=== PATIENT | male | born 1955 | race American Indian/Alaskan Native ===

== ENCOUNTER 2018-02-15 16:23 | Inpatient (IN) | payer MEDICARE ==
[2018-02-15] MEDS ORDERED: TYLENOL ONE (16:33)
[2018-02-15] MEDS ORDERED: NACL 0.9% 500 ML 500 ML IV ONE (16:33)
[2018-02-15] MEDS ORDERED: TYLENOL PO STA (16:33)
[2018-02-15 17:01] LABS: Basophils # (Auto) 0.1 K/mm3 (0.0-0.1); Basophils % (Auto) 0.3 % (0.0-1.8); Hematocrit 39.9 % (35.5-45.6); Lymphocytes # (Auto) 0.8 K/mm3 (1.2-5.4); Lymphocytes % (Auto) 4.1 % (13.4-35.0); Mean Corpuscular HGB Conc 33 % (32-34); Mean Corpuscular Hemoglobin 28 pg (28-32); Mean Corpuscular Volume 86 fl (84-94); Monocytes # (Auto) 1.9 K/mm3 (0.0-0.8); Monocytes % (Auto) 9.5 % (0.0-7.3); Platelet Count 328 K/mm3 (140-440); Red Blood Count 4.64 M/mm3 (3.65-5.03); Red Cell Distribution Width 14.8 % (13.2-15.2)
[2018-02-15 17:06] LABS: INR 1.06 (0.87-1.13)
[2018-02-15] MEDS ORDERED: COLCRYS PO ONE (17:08)
[2018-02-15] MEDS ORDERED: DILAUDID IV ONE (17:08)
[2018-02-15] MEDS ORDERED: ZOFRAN IV ONE (17:08)
[2018-02-15] MEDS ORDERED: INDOCIN PO ONE (17:08)
[2018-02-15] MEDS ORDERED: NACL 0.9% 1000 ML IV ONE (17:09)
[2018-02-15] MEDS ORDERED: NACL 0.9% 1000 ML 1,000 ML IV ONE (17:10)
[2018-02-15 17:12] LABS: Calcium 9.4 mg/dL (8.4-10.2)
--- NOTE | 2018-02-15 17:31 | Emergency Department Report ---
ED Fever HPI - General Chief Complaint: Fever Stated Complaint: RIGHT SHOULDER ARM WRIST PAIN Time Seen by Provider: 02/15/18 16:59 Source: patient Exam Limitations: no limitations - History of Present Illness Initial Comments: 62-year-old male with a past medical history of gout and hypertension presents to the Hospital complaining of pain secondary to gout attacks since yesterday. Pain is constant, throbbing, rated 10/10 intensity, worse with palpation and movement. No alleviating factors reported. Patient has pain to his right shoulder, right elbow, right wrist, lower back, and bilateral feet. Patient did not realize he was febrile until after arrival. Reports he has had a fever with a bad gout flare in the past. Patient is supposed to be on colchicine daily but ran out several days ago. He denies headache, chest pain, shortness of breath, cough, sore throat, dental pain, nausea, vomiting, diarrhea, or dysuria. ED Review of Systems ROS: Stated complaint: RIGHT SHOULDER ARM WRIST PAIN Other details as noted in HPI Comment: All other systems reviewed and negative ED Past Medical Hx - Past Medical History Hx Hypertension: Yes Hx Arthritis: Yes ED Physical Exam - General Limitations: No Limitations - Other Other exam information: General: No limitations, patient is alert in no acute distress Head exam: Atraumatic, normocephalic Eyes exam: Normal appearance, pupils equal reactive to light, extraocular movements intact ENT: Moist mucous membrane, normal oropharynx Neck exam: Normal inspection, full range of motion, no meningismus nontender Respiratory exam: Clear to auscultation bilateral, no wheezes, rales, crackles Cardiovascular: Normal rate and rhythm, normal heart sounds Abdomen: Soft, nondistended, and nontender, with normal bowel sounds, no rebound, or guarding Extremity: Pain with movement right shoulder, no warmth or deformity. Warmth to the right elbow, tenderness, and pain with movement in all directions. Erythema, warmth, and tenderness noted to right wrist. The erythema, warmth Back: Normal Inspection, full range of motion, no tenderness Neurologic: Alert, oriented x3, cranial nerves intact, no motor or sensory deficit Psychiatric: normal affect, normal mood Skin: Warm, dry, intact ED Course Vital Signs 02/15/18 02/15/18 02/15/18 16:30 17:04 17:16 Temperature 102.3 F H Pulse Rate 121 H 113 H 110 H Respiratory 18 21 28 H Rate Blood Pressure 144/86 O2 Sat by Pulse 93 97 97 Oximetry 02/15/18 02/15/18 02/15/18 17:30 17:46 18:00 Temperature Pulse Rate 105 H 105 H 101 H Respiratory 22 26 H 17 Rate Blood Pressure 128/87 128/87 123/79 O2 Sat by Pulse 88 90 88 Oximetry 02/15/18 02/15/18 02/15/18 18:16 18:30 18:46 Temperature Pulse Rate 101 H 100 H 99 H Respiratory 29 H 19 22 Rate Blood Pressure 123/79 121/76 121/76 O2 Sat by Pulse 93 92 Oximetry 02/15/18 02/15/18 02/15/18 19:00 19:16 19:30 Temperature Pulse Rate 99 H 96 H 97 H Respiratory 26 H 24 22 Rate Blood Pressure 116/82 116/82 133/79 O2 Sat by Pulse 91 90 90 Oximetry 02/15/18 02/15/18 02/15/18 19:46 20:00 20:16 Temperature Pulse Rate 96 H 96 H 94 H Respiratory 20 20 19 Rate Blood Pressure 133/79 128/80 128/80 O2 Sat by Pulse 92 92 89 Oximetry 02/15/18 02/15/18 02/15/18 20:30 20:37 20:46 Temperature 99 F Pulse Rate 97 H 93 H Respiratory 20 19 Rate Blood Pressure 126/79 126/79 O2 Sat by Pulse 91 92 Oximetry 02/15/18 02/15/18 02/15/18 21:00 21:16 21:30 Temperature Pulse Rate 94 H 91 H 90 Respiratory 17 22 19 Rate Blood Pressure 125/80 125/80 120/82 O2 Sat by Pulse 91 92 92 Oximetry 02/15/18 02/15/18 02/15/18 21:46 22:00 22:16 Temperature Pulse Rate 91 H 90 89 Respiratory 17 15 23 Rate Blood Pressure 120/82 120/82 120/82 O2 Sat by Pulse 94 94 94 Oximetry 02/15/18 02/15/18 02/15/18 22:30 22:46 23:00 Temperature Pulse Rate 86 89 95 H Respiratory 13 20 15 Rate Blood Pressure 130/82 130/82 138/85 O2 Sat by Pulse 94 97 91 Oximetry 02/15/18 02/15/18 02/15/18 23:16 23:30 23:46 Temperature Pulse Rate 90 Respiratory 27 H 23 19 Rate Blood Pressure 138/85 126/78 138/85 O2 Sat by Pulse 95 92 92 Oximetry ED Medical Decision Making - Lab Data Result diagrams: 02/15/18 16:38 02/15/18 16:38 Lab Results 02/15/18 02/15/18 02/15/18 Range/Units 16:38 16:38 16:38 WBC 19.9 H (4.5-11.0) K/mm3 RBC 4.64 (3.65-5.03) M/mm3 Hgb 13.0 (11.8-15.2) gm/dl Hct 39.9 (35.5-45.6) % MCV 86 (84-94) fl MCH 28 (28-32) pg MCHC 33 (32-34) % RDW 14.8 (13.2-15.2) % Plt Count 328 (140-440) K/mm3 Lymph % (Auto) 4.1 L (13.4-35.0) % [place] % (Auto) 9.5 H (0.0-7.3) % Eos % (Auto) 0.0 (0.0-4.3) % Baso % (Auto) 0.3 (0.0-1.8) % Lymph # 0.8 L (1.2-5.4) K/mm3 [place] # 1.9 H (0.0-0.8) K/mm3 Eos # 0.0 (0.0-0.4) K/mm3 Baso # 0.1 (0.0-0.1) K/mm3 Seg Neutrophils % 86.1 H (40.0-70.0) % Seg Neutrophils # 17.2 H (1.8-7.7) K/mm3 PT (12.2-14.9) Sec. INR (0.87-1.13) VBG pH (7.320-7.420) Sodium 135 L (137-145) mmol/L Potassium 4.4 (3.6-5.0) mmol/L Chloride 96.1 L (98-107) mmol/L Carbon Dioxide 19 L (22-30) mmol/L Anion Gap 24 mmol/L BUN 21 H (9-20) mg/dL Creatinine 1.5 (0.8-1.5) mg/dL Estimated GFR 48 ml/min BUN/Creatinine Ratio 14 % Glucose 136 H (75-100) mg/dL Lactic Acid 1.80 (0.7-2.0) mmol/L Calcium 9.4 (8.4-10.2) mg/dL Total Bilirubin 1.40 H (0.1-1.2) mg/dL AST 19 (5-40) units/L ALT 15 (7-56) units/L Alkaline Phosphatase 106 (35-129) units/L Total Protein 8.3 H (6.3-8.2) g/dL Albumin 4.0 (3.9-5) g/dL Albumin/Globulin Ratio 0.9 % Urine Color (Yellow) Urine Turbidity (Clear) Urine pH (5.0-7.0) Ur Specific [place] (1.003-1.030) Urine Protein (Negative) mg/dL Urine Glucose (UA) (Negative) mg/dL Urine Ketones (Negative) mg/dL Urine Blood (Negative) Urine Nitrite (Negative) Urine Bilirubin (Negative) Urine Urobilinogen (<2.0) mg/dL Ur Leukocyte Esterase (Negative) Urine WBC (Auto) (0.0-6.0) /HPF Urine RBC (Auto) (0.0-6.0) /HPF Urine Mucus /HPF 02/15/18 02/15/18 02/15/18 Range/Units 16:38 16:42 19:09 WBC (4.5-11.0) K/mm3 RBC (3.65-5.03) M/mm3 Hgb (11.8-15.2) gm/dl Hct (35.5-45.6) % MCV (84-94) fl MCH (28-32) pg MCHC (32-34) % RDW (13.2-15.2) % Plt Count (140-440) K/mm3 Lymph % (Auto) (13.4-35.0) % [place] % (Auto) (0.0-7.3) % Eos % (Auto) (0.0-4.3) % Baso % (Auto) (0.0-1.8) % Lymph # (1.2-5.4) K/mm3 [place] # (0.0-0.8) K/mm3 Eos # (0.0-0.4) K/mm3 Baso # (0.0-0.1) K/mm3 Seg Neutrophils % (40.0-70.0) % Seg Neutrophils # (1.8-7.7) K/mm3 PT 14.4 (12.2-14.9) Sec. INR 1.06 (0.87-1.13) VBG pH 7.381 (7.320-7.420) Sodium (137-145) mmol/L Potassium (3.6-5.0) mmol/L Chloride (98-107) mmol/L Carbon Dioxide (22-30) mmol/L Anion Gap mmol/L BUN (9-20) mg/dL Creatinine (0.8-1.5) mg/dL Estimated GFR ml/min BUN/Creatinine Ratio % Glucose (75-100) mg/dL Lactic Acid 1.00 (0.7-2.0) mmol/L Calcium (8.4-10.2) mg/dL Total Bilirubin (0.1-1.2) mg/dL AST (5-40) units/L ALT (7-56) units/L Alkaline Phosphatase (35-129) units/L Total Protein (6.3-8.2) g/dL Albumin (3.9-5) g/dL Albumin/Globulin Ratio % Urine Color (Yellow) Urine Turbidity (Clear) Urine pH (5.0-7.0) Ur Specific [place] (1.003-1.030) Urine Protein (Negative) mg/dL Urine Glucose (UA) (Negative) mg/dL Urine Ketones (Negative) mg/dL Urine Blood (Negative) Urine Nitrite (Negative) Urine Bilirubin (Negative) Urine Urobilinogen (<2.0) mg/dL Ur Leukocyte Esterase (Negative) Urine WBC (Auto) (0.0-6.0) /HPF Urine RBC (Auto) (0.0-6.0) /HPF Urine Mucus /HPF 02/15/18 Range/Units 20:53 WBC (4.5-11.0) K/mm3 RBC (3.65-5.03) M/mm3 Hgb (11.8-15.2) gm/dl Hct (35.5-45.6) % MCV (84-94) fl MCH (28-32) pg MCHC (32-34) % RDW (13.2-15.2) % Plt Count (140-440) K/mm3 Lymph % (Auto) (13.4-35.0) % [place] % (Auto) (0.0-7.3) % Eos % (Auto) (0.0-4.3) % Baso % (Auto) (0.0-1.8) % Lymph # (1.2-5.4) K/mm3 [place] # (0.0-0.8) K/mm3 Eos # (0.0-0.4) K/mm3 Baso # (0.0-0.1) K/mm3 Seg Neutrophils % (40.0-70.0) % Seg Neutrophils # (1.8-7.7) K/mm3 PT (12.2-14.9) Sec. INR (0.87-1.13) VBG pH (7.320-7.420) Sodium (137-145) mmol/L Potassium (3.6-5.0) mmol/L Chloride (98-107) mmol/L Carbon Dioxide (22-30) mmol/L Anion Gap mmol/L BUN (9-20) mg/dL Creatinine (0.8-1.5) mg/dL Estimated GFR ml/min BUN/Creatinine Ratio % Glucose (75-100) mg/dL Lactic Acid (0.7-2.0) mmol/L Calcium (8.4-10.2) mg/dL Total Bilirubin (0.1-1.2) mg/dL AST (5-40) units/L ALT (7-56) units/L Alkaline Phosphatase (35-129) units/L Total Protein (6.3-8.2) g/dL Albumin (3.9-5) g/dL Albumin/Globulin Ratio % Urine Color Yellow (Yellow) Urine Turbidity Clear (Clear) Urine pH 5.0 (5.0-7.0) Ur Specific [place] 1.013 (1.003-1.030) Urine Protein <15 mg/dl (Negative) mg/dL Urine Glucose (UA) Neg (Negative) mg/dL Urine Ketones Tr (Negative) mg/dL Urine Blood Neg (Negative) Urine Nitrite Neg (Negative) Urine Bilirubin Neg (Negative) Urine Urobilinogen < 2.0 (<2.0) mg/dL Ur Leukocyte Esterase Neg (Negative) Urine WBC (Auto) 1.0 (0.0-6.0) /HPF Urine RBC (Auto) 2.0 (0.0-6.0) /HPF Urine Mucus Few /HPF - Radiology Data Radiology results: report reviewed read by me cxr: naf - Medical Decision Making Patient presents with fever and inflammation of multiple joints. This is likely an acute gout flare given fever and leukocytosis patient will be admitted for the treatment. Cultures pending. Patient received Tylenol colchicine, indomethacin, Dilaudid, Zofran, and normal saline in the ED - Differential Diagnosis gout, sepsis, septic arthritis, septic emboli, pneumonia, UTI Critical Care Time: No Critical care attestation.: If time is entered above; I have spent that time in minutes in the direct care of this critically ill patient, excluding procedure time. ED Disposition Clinical Impression: Fever, Gout flare, HTN (hypertension) Disposition: OP ADMIT IP TO THIS HOSP Is pt being admited?: Yes Condition: Stable Time of Disposition: 18:26 (Dr Elliott/hosp)
[2018-02-15] MEDS ORDERED: CATAPRES PO ONE (17:42)
--- NOTE | 2018-02-15 19:04 | XRay Report ---
FINAL REPORT PROCEDURE: Chest. TECHNIQUE: Portable AP view. HISTORY: Possible sepsis. COMPARISON: No prior studies are available for comparison. FINDINGS: The heart and mediastinum appear normal. The lungs are clear and well expanded. There are no pleural effusions. The soft tissues and regional skeleton are unremarkable. IMPRESSION: Negative portable chest.
[2018-02-15 21:18] LABS: Bilirubin,Urine NEG (Negative); Blood,Urine NEG (Negative); Color,Urine Yellow (Yellow); Mucus,Urine FEW /HPF; Protein,Urine <15 mg/dL mg/dL (Negative); Urobilinogen,Urine < 2.0 mg/dL (<2.0)
[2018-02-15] MEDS ORDERED: APRESOLINE IV PRN (22:22)
[2018-02-15] MEDS ORDERED: ZOFRAN IV PRN (22:23)
[2018-02-15] MEDS ORDERED: SODIUM CHLORIDE FLUSH SYRINGE 10 ML IV PRN (22:23)
--- NOTE | 2018-02-15 22:27 | History and Physical Report ---
History of Present Illness Date of examination: 02/15/18 History of present illness: 62-year-old man with a history of hypertension, gout comes to emergency room with complaints of right wrist, elbow and shoulder and feet pain. Described the pain as dull, intermittent in nature over 5 minutes, intensity 8/10, no radiation. Also admits to swelling and fever, he ran out of his colchicine. Patient unable to use the right arm Review of systems Constitutional: no weight loss, chills Ears, eyes, nose, mouth and throat: no nasal congestion, no nasal discharge, no sinus pressure, no vision change, no red eye. Neck: No neck pain or rigidity. Cardiovascular: no chest pain, palpitations Respiratory: No cough, shortness of breath Gastrointestinal: no abdominal pain, hematochezia Genitourinary : +dysuria, frequency , no hematuria Musculoskeletal: no joint swelling or muscle ache Integumentary: no rash, no pruritis Neurological: no parathesias, no numbness, no focal weakness Endocrine: no cold or heat intolerance, no polyuria or polydipsia Hematologic/Lymphatic: no easy bruising, no easy bleeding, no gland swelling Allergic/Immunologic: no urticaria, no angioedema. PAST MEDICAL HISTORY: Hypertension, glaucoma, osteoarthritis PAST SURGICAL HISTORY: None SOCIAL HISTORY: Denies alcohol tobacco, drugs FAMILY HISTORY: hypertension Medications and Allergies Allergies Allergy/AdvReac Type Severity Reaction Status Date / Time No Known Allergies Allergy Unverified 02/15/18 16:30 Active Meds: Active Medications Hydralazine HCl (Apresoline) 5 mg IV Q6HR PRN PRN Reason: Hypertension Ceftriaxone Sodium (Rocephin/Ns 1 Gm/50 Ml) 1 gm in 50 mls @ 100 mls/hr IV Q24HR [facility]; Protocol Exam - Physical Exam Narrative exam: Gen. appearance: Patient lying in bed, no apparent distress HEENT: Normocephalic, atraumatic, pupils equally round and reactive to light, extraocular movement intact, and no sclericterus,. No JVD or thyromegaly or nodule,neck supple, no carotid bruit ,mucous membranes moist, no exudate or erythema Heart: S1, S2, regular rate and rhythm Lungs: Clear to auscultation bilaterally, breathing comfortable Abdomen: Positive bowel sounds, nontender, nondistended, no organomegaly Extremity: Swelling and tenderness of the right wrist, elbow and shoulder joint , decreased range of motion of the right arm, no cyanosis, clubbing Skin: No rash, nodules, warm, dry Neuro: Oriented 3, cranial nerves II-12 intact, speech is fluent, motor and sensory intact - Constitutional Vitals: Temp Pulse Resp BP Pulse Ox 99 F 97 H 20 126/79 91 02/15/18 20:37 02/15/18 20:30 02/15/18 20:30 02/15/18 20:30 02/15/18 20:30 Results - Labs CBC & Chem 7: 02/15/18 16:38 02/15/18 16:38 Labs: Abnormal lab results 02/15/18 02/15/18 Range/Units 16:38 16:38 WBC 19.9 H (4.5-11.0) K/mm3 Lymph % (Auto) 4.1 L (13.4-35.0) % [place] % (Auto) 9.5 H (0.0-7.3) % Lymph # 0.8 L (1.2-5.4) K/mm3 [place] # 1.9 H (0.0-0.8) K/mm3 Seg Neutrophils % 86.1 H (40.0-70.0) % Seg Neutrophils # 17.2 H (1.8-7.7) K/mm3 Sodium 135 L (137-145) mmol/L Chloride 96.1 L (98-107) mmol/L Carbon Dioxide 19 L (22-30) mmol/L BUN 21 H (9-20) mg/dL Glucose 136 H (75-100) mg/dL Total Bilirubin 1.40 H (0.1-1.2) mg/dL Total Protein 8.3 H (6.3-8.2) g/dL Assessment and Plan Assessment Acute gouty attack SIRS Hypertension Osteoarthritis Plan Admit to medicine Start colchicine, morphine Hold NSAIDs secondary to decreased GFR White count may be secondary to gout, start antibiotic, follow culture Continued outpatient medications DVT prophylaxis
--- NOTE | 2018-02-16 08:57 | Progress Note ---
Assessment and Plan Acute gouty attack SIRS Hypertension Osteoarthritis Plan continue with colchicine, morphine Hold NSAIDs secondary to decreased GFR Leukocytosis may be secondary to gout vs infection, Continue antibiotic, follow culture Continued outpatient medications DVT prophylaxis Subjective Date of service: 02/16/18 Principal diagnosis: SIRS, Acute gouty arthritis, HTN Interval history: Still having pain right wrist elbow and shoulder Objective - Constitutional Vitals: Vital Signs - 12hr 02/15/18 02/15/18 02/15/18 21:00 21:16 21:30 Temperature Pulse Rate 94 H 91 H 90 Respiratory 17 22 19 Rate Blood Pressure 125/80 125/80 120/82 O2 Sat by Pulse 91 92 92 Oximetry 02/15/18 02/15/18 02/15/18 21:46 22:00 22:16 Temperature Pulse Rate 91 H 90 89 Respiratory 17 15 23 Rate Blood Pressure 120/82 120/82 120/82 O2 Sat by Pulse 94 94 94 Oximetry 02/15/18 02/15/18 02/15/18 22:30 22:46 23:00 Temperature Pulse Rate 86 89 95 H Respiratory 13 20 15 Rate Blood Pressure 130/82 130/82 138/85 O2 Sat by Pulse 94 97 91 Oximetry 02/15/18 02/15/18 02/15/18 23:16 23:30 23:46 Temperature Pulse Rate 90 Respiratory 27 H 23 19 Rate Blood Pressure 138/85 126/78 138/85 O2 Sat by Pulse 95 92 92 Oximetry 02/16/18 02/16/18 02/16/18 00:00 00:04 00:43 Temperature 98.7 F Pulse Rate 87 Respiratory 17 19 18 Rate Blood Pressure 138/85 138/85 121/78 O2 Sat by Pulse 90 91 92 Oximetry 02/16/18 07:53 Temperature 98.4 F Pulse Rate 86 Respiratory 18 Rate Blood Pressure 126/80 O2 Sat by Pulse 97 Oximetry General appearance: Present: no acute distress, well-nourished - EENT Eyes: PERRL, EOM intact - Neck Neck: supple, normal ROM - Respiratory Respiratory effort: normal Respiratory: bilateral: CTA - Breasts Breasts: normal - Cardiovascular Rhythm: regular Heart Sounds: Present: S1 & S2. Absent: gallop, rub Extremities: pulses intact, No edema, normal color, Full ROM - Gastrointestinal General gastrointestinal: Present: soft, non-tender, non-distended, normal bowel sounds - Genitourinary Male genitourinary: normal - Integumentary Integumentary: clear, warm, dry - Musculoskeletal Musculoskeletal: other (tender in his right wrist with decreased ROM) - Neurologic Neurologic: moves all extremities - Psychiatric Psychiatric: memory intact, appropriate mood/affect, intact judgment & insight - Labs CBC & Chem 7: 02/15/18 16:38 02/15/18 16:38 Labs: Abnormal lab results 02/15/18 02/15/18 Range/Units 16:38 16:38 WBC 19.9 H (4.5-11.0) K/mm3 Lymph % (Auto) 4.1 L (13.4-35.0) % [place] % (Auto) 9.5 H (0.0-7.3) % Lymph # 0.8 L (1.2-5.4) K/mm3 [place] # 1.9 H (0.0-0.8) K/mm3 Seg Neutrophils % 86.1 H (40.0-70.0) % Seg Neutrophils # 17.2 H (1.8-7.7) K/mm3 Sodium 135 L (137-145) mmol/L Chloride 96.1 L (98-107) mmol/L Carbon Dioxide 19 L (22-30) mmol/L BUN 21 H (9-20) mg/dL Glucose 136 H (75-100) mg/dL Total Bilirubin 1.40 H (0.1-1.2) mg/dL Total Protein 8.3 H (6.3-8.2) g/dL
[2018-02-16] MEDS: LOVENOX SUB-Q SCH (09:22)
[2018-02-16] MEDS: cefTRIAXone 1 GM in NACL 0.9% 20 ML IV SCH (09:25)
[2018-02-16] MEDS: SODIUM CHLORIDE FLUSH SYRINGE 10 ML IV SCH (09:27)
[2018-02-16] MEDS ORDERED: LOVENOX SUB-Q SCH (10:00)
[2018-02-16] MEDS ORDERED: ROCEPHIN/NS 1 GM/50 ML 1 GM/50 ML BAG IV SCH (10:00)
[2018-02-16] MEDS ORDERED: COLCRYS PO ONE (10:00)
[2018-02-16 11:33] LABS: Basophils % (Auto) 0.3 % (0.0-1.8); Eosinophils % (Auto) 0.3 % (0.0-4.3); Hematocrit 35.4 % (35.5-45.6); Hemoglobin 11.5 gm/dl (11.8-15.2); Lymphocytes # (Auto) 0.8 K/mm3 (1.2-5.4); Lymphocytes % (Auto) 5.2 % (13.4-35.0); Mean Corpuscular HGB Conc 32 % (32-34); Mean Corpuscular Hemoglobin 28 pg (28-32); Mean Corpuscular Volume 86 fl (84-94); Monocytes # (Auto) 1.3 K/mm3 (0.0-0.8); Monocytes % (Auto) 8.6 % (0.0-7.3); Platelet Count 274 K/mm3 (140-440); Red Blood Count 4.11 M/mm3 (3.65-5.03); Red Cell Distribution Width 14.5 % (13.2-15.2)
[2018-02-16 12:20] LABS: BUN/Creatinine Ratio 19; Blood Urea Nitrogen 23 mg/dL (9-20); Calcium 9.1 mg/dL (8.4-10.2); Hemolysis Index 6
[2018-02-16] MEDS: TYLENOL PO PRN (15:43)
[2018-02-16] MEDS: MORPHINE IV PRN (20:55)
[2018-02-16] MEDS ORDERED: VANCOMYCIN PHARMACY TO DOSE IV SCH (23:00)
[2018-02-17] MEDS ORDERED: VANCOMYCIN 2,000 MG in NACL 0.9% 500 ML 500 ML IV ONE
[2018-02-17] MEDS: SODIUM CHLORIDE FLUSH SYRINGE 10 ML IV SCH ×3 (01:06→23:24)
[2018-02-17] MEDS: TYLENOL PO PRN ×2 (01:14→20:54)
--- NOTE | 2018-02-17 01:26 | Progress Note ---
Assessment and Plan Assessment and plan: 62-year-old man with a history of hypertension, gout comes to emergency room with complaints of right wrist, elbow and shoulder and feet pain. Described the pain as dull, intermittent in nature over 5 minutes, intensity 8/10, no radiation. Also admits to swelling and fever, he ran out of his colchicine. Patient unable to use the right arm Acute gouty attack SIRS Hypertension Osteoarthritis Plan continue with colchicine, morphine Hold NSAIDs secondary to decreased GFR Leukocytosis may be secondary to gout vs infection, Continue antibiotic, follow culture Continued outpatient medications DVT prophylaxis History Interval history: Review of systems Constitutional:had fever of 101.9 CVS: No chest pain, no orthopnea, no dyspnea on exertion, no pedal edema GI: No abdominal pain, no diarrhea, no vomiting, no constipation Respiratory: No shortness of breath, no wheezing, no coughing Hospitalist Physical - Physical exam Narrative exam: General.: Appears well, no distress, nontoxic HEENT: Moist mucous membranes, extraocular muscles intact, no lymphadenopathy Neck: supple Cardiac: S1-S2 heard Lungs: clear to auscultation bilaterally Abdomen: soft , nontender, nondistended, bowel sounds positive Extremities: no edema clubbing or cyanosis Skin: no rash or lesions Neurologic: no gross focal deficits Psych: appropriate behavior, appropriate mood, corporative, judgment intact - Constitutional Vitals: Temp Pulse Resp BP Pulse Ox 101.9 F H 96 H 24 133/83 90 02/16/18 21:52 02/16/18 21:52 02/16/18 21:52 02/16/18 21:52 02/16/18 21:52 General appearance: Present: no acute distress, well-nourished Results - Labs CBC & Chem 7: 02/17/18 04:36 02/17/18 04:36 Labs: Laboratory Last Values WBC 15.7 K/mm3 (4.5-11.0) H 02/16/18 10:34 RBC 4.11 M/mm3 (3.65-5.03) 02/16/18 10:34 Hgb 11.5 gm/dl (11.8-15.2) L 02/16/18 10:34 Hct 35.4 % (35.5-45.6) L 02/16/18 10:34 MCV 86 fl (84-94) 02/16/18 10:34 MCH 28 pg (28-32) 02/16/18 10:34 MCHC 32 % (32-34) 02/16/18 10:34 RDW 14.5 % (13.2-15.2) 02/16/18 10:34 Plt Count 274 K/mm3 (140-440) 02/16/18 10:34 Lymph % (Auto) 5.2 % (13.4-35.0) L 02/16/18 10:34 [place] % (Auto) 8.6 % (0.0-7.3) H 02/16/18 10:34 Eos % (Auto) 0.3 % (0.0-4.3) 02/16/18 10:34 Baso % (Auto) 0.3 % (0.0-1.8) 02/16/18 10:34 Lymph # 0.8 K/mm3 (1.2-5.4) L 02/16/18 10:34 [place] # 1.3 K/mm3 (0.0-0.8) H 02/16/18 10:34 Eos # 0.0 K/mm3 (0.0-0.4) 02/16/18 10:34 Baso # 0.0 K/mm3 (0.0-0.1) 02/16/18 10:34 Seg Neutrophils % 85.6 % (40.0-70.0) H 02/16/18 10:34 Seg Neutrophils # 13.5 K/mm3 (1.8-7.7) H 02/16/18 10:34 PT 14.4 Sec. (12.2-14.9) 02/15/18 16:42 INR 1.06 (0.87-1.13) 02/15/18 16:42 VBG pH 7.381 (7.320-7.420) 02/15/18 16:38 Sodium 139 mmol/L (137-145) 02/16/18 10:34 Potassium 4.1 mmol/L (3.6-5.0) 02/16/18 10:34 Chloride 102.9 mmol/L (98-107) 02/16/18 10:34 Carbon Dioxide 25 mmol/L (22-30) 02/16/18 10:34 Anion Gap 15 mmol/L 02/16/18 10:34 BUN 23 mg/dL (9-20) H 02/16/18 10:34 Creatinine 1.2 mg/dL (0.8-1.5) 02/16/18 10:34 Estimated GFR > 60 ml/min 02/16/18 10:34 BUN/Creatinine Ratio 19 % 02/16/18 10:34 Glucose 134 mg/dL (75-100) H 02/16/18 10:34 Lactic Acid 1.00 mmol/L (0.7-2.0) 02/15/18 19:09 Uric Acid 9.4 mg/dL (3.5-7.6) H 02/16/18 10:34 Calcium 9.1 mg/dL (8.4-10.2) 02/16/18 10:34 Total Bilirubin 1.40 mg/dL (0.1-1.2) H 02/15/18 16:38 AST 19 units/L (5-40) 02/15/18 16:38 ALT 15 units/L (7-56) 02/15/18 16:38 Alkaline Phosphatase 106 units/L (35-129) 02/15/18 16:38 Total Protein 8.3 g/dL (6.3-8.2) H 02/15/18 16:38 Albumin 4.0 g/dL (3.9-5) 02/15/18 16:38 Albumin/Globulin Ratio 0.9 % 02/15/18 16:38 Urine Color Yellow (Yellow) 02/15/18 20:53 Urine Turbidity Clear (Clear) 02/15/18 20:53 Urine pH 5.0 (5.0-7.0) 02/15/18 20:53 Ur Specific [place] 1.013 (1.003-1.030) 02/15/18 20:53 Urine Protein <15 mg/dl mg/dL (Negative) 02/15/18 20:53 Urine Glucose (UA) Neg mg/dL (Negative) 02/15/18 20:53 Urine Ketones Tr mg/dL (Negative) 02/15/18 20:53 Urine Blood Neg (Negative) 02/15/18 20:53 Urine Nitrite Neg (Negative) 02/15/18 20:53 Urine Bilirubin Neg (Negative) 02/15/18 20:53 Urine Urobilinogen < 2.0 mg/dL (<2.0) 02/15/18 20:53 Ur Leukocyte Esterase Neg (Negative) 02/15/18 20:53 Urine WBC (Auto) 1.0 /HPF (0.0-6.0) 02/15/18 20:53 Urine RBC (Auto) 2.0 /HPF (0.0-6.0) 02/15/18 20:53 Urine Mucus Few /HPF 02/15/18 20:53
[2018-02-17 04:51] LABS: Basophils % (Auto) 0.2 % (0.0-1.8); Eosinophils % (Auto) 0.2 % (0.0-4.3); Hematocrit 34.4 % (35.5-45.6); Hemoglobin 11.2 gm/dl (11.8-15.2); Lymphocytes # (Auto) 1.5 K/mm3 (1.2-5.4); Lymphocytes % (Auto) 8.6 % (13.4-35.0); Mean Corpuscular HGB Conc 33 % (32-34); Mean Corpuscular Hemoglobin 28 pg (28-32); Mean Corpuscular Volume 86 fl (84-94); Monocytes # (Auto) 1.9 K/mm3 (0.0-0.8); Monocytes % (Auto) 10.6 % (0.0-7.3); Platelet Count 293 K/mm3 (140-440); Red Blood Count 3.99 M/mm3 (3.65-5.03); Red Cell Distribution Width 14.4 % (13.2-15.2)
[2018-02-17 05:11] LABS: Alanine Aminotransferase 10 units/L (7-56); Albumin 3.2 g/dL (3.9-5); BUN/Creatinine Ratio 14; Blood Urea Nitrogen 19 mg/dL (9-20); Calcium 8.9 mg/dL (8.4-10.2); Hemolysis Index 5
[2018-02-17] MEDS: LOVENOX SUB-Q SCH (09:31)
[2018-02-17] MEDS: MORPHINE IV PRN ×4 (09:32→23:22)
[2018-02-17] MEDS: cefTRIAXone 1 GM in NACL 0.9% 20 ML IV SCH (09:32)
[2018-02-17] MEDS ORDERED: VANCOMYCIN 1,750 MG in NACL 0.9% 500 ML 500 ML IV SCH (12:00)
[2018-02-17] MEDS ORDERED: NON-FORMULARY (Colchicine 0.6 MG) PO SCH (13:00)
[2018-02-17] MEDS ORDERED: INDOMETHACIN 50 MG PO SCH (13:00)
[2018-02-17] MEDS ORDERED: NON-FORMULARY (Amlodipine Besylate 10 MG) PO SCH (13:00)
[2018-02-17] MEDS: NORVASC PO SCH (14:36)
[2018-02-17] MEDS: DELTASONE PO SCH (14:37)
[2018-02-17] MEDS: COLCRYS PO SCH (17:03)
--- NOTE | 2018-02-17 17:29 | XRay Report ---
FINAL REPORT EXAM: XR SHOULDER 2+V RT HISTORY: r shoulder swelling. gout? TECHNIQUE: Three views right shoulder PRIORS: None. FINDINGS: No fractures are identified. No dislocation seen. The acromioclavicular joint is intact. Adjacent bony and soft tissue structures are unremarkable. IMPRESSION: Negative shoulder series
--- NOTE | 2018-02-17 17:35 | XRay Report ---
FINAL REPORT EXAM: XR ELBOW 2V RT HISTORY: RT elbow swelling. gout? TECHNIQUE: Right elbow two views PRIORS: None. FINDINGS: There is diffuse joint space narrowing. No evidence for joint effusion. No acute fracture or dislocation is identified. No abnormal soft tissue calcifications are identified. IMPRESSION: degenerative changes at the elbow joint with joint space narrowing
--- NOTE | 2018-02-17 17:40 | XRay Report ---
FINAL REPORT EXAM: XR WRIST 2V RT HISTORY: wrist swelling. gout? TECHNIQUE: Right wrist two views PRIORS: None. FINDINGS: There is severe joint space narrowing from the radiocarpal joint space through the mid and carpal/metacarpal joint spaces. Bony margins are somewhat irregular without focal erosive bony change. No acute fracture is identified. No malalignment seen. IMPRESSION: Marked degenerative changes throughout the wrist
[2018-02-17] MEDS: INDOCIN PO SCH (23:23)
[2018-02-18] MEDS ORDERED: VANCOMYCIN 2,000 MG in NACL 0.9% 500 ML 500 ML IV SCH
[2018-02-18 04:37] LABS: Basophils % (Auto) 0.1 % (0.0-1.8); Eosinophils # (Auto) 0.1 K/mm3 (0.0-0.4); Eosinophils % (Auto) 0.7 % (0.0-4.3); Hematocrit 33.1 % (35.5-45.6); Lymphocytes % (Auto) 11.3 % (13.4-35.0); Mean Corpuscular HGB Conc 33 % (32-34); Mean Corpuscular Hemoglobin 28 pg (28-32); Mean Corpuscular Volume 85 fl (84-94); Monocytes % (Auto) 11.7 % (0.0-7.3); Platelet Count 324 K/mm3 (140-440); Red Blood Count 3.89 M/mm3 (3.65-5.03); Red Cell Distribution Width 14.7 % (13.2-15.2)
[2018-02-18 04:49] LABS: Alanine Aminotransferase 9 units/L (7-56); Albumin 3.3 g/dL (3.9-5); BUN/Creatinine Ratio 14; Blood Urea Nitrogen 19 mg/dL (9-20); Calcium 8.5 mg/dL (8.4-10.2); Hemolysis Index 0
[2018-02-18] MEDS: cefTRIAXone 1 GM in NACL 0.9% 20 ML IV SCH (09:20)
[2018-02-18] MEDS: COLCRYS PO SCH ×2 (09:21→22:00)
[2018-02-18] MEDS: INDOCIN PO SCH ×3 (09:21→22:00)
[2018-02-18] MEDS: DELTASONE PO SCH (09:21)
[2018-02-18] MEDS: NORVASC PO SCH (09:21)
[2018-02-18] MEDS: LOVENOX SUB-Q SCH (09:23)
[2018-02-18] MEDS: SODIUM CHLORIDE FLUSH SYRINGE 10 ML IV SCH ×2 (09:24→22:01)
--- NOTE | 2018-02-18 19:13 | Progress Note ---
Hospitalist Physical - Constitutional Vitals: Temp Pulse Resp BP Pulse Ox 98.5 F 81 20 124/82 96 02/18/18 15:29 02/18/18 15:29 02/18/18 15:29 02/18/18 15:29 02/18/18 15:29 General appearance: Present: no acute distress, well-nourished Results - Labs CBC & Chem 7: 02/18/18 04:20 02/18/18 04:20 Labs: Laboratory Last Values WBC 17.5 K/mm3 (4.5-11.0) H 02/18/18 04:20 RBC 3.89 M/mm3 (3.65-5.03) 02/18/18 04:20 Hgb 11.0 gm/dl (11.8-15.2) L 02/18/18 04:20 Hct 33.1 % (35.5-45.6) L 02/18/18 04:20 MCV 85 fl (84-94) 02/18/18 04:20 MCH 28 pg (28-32) 02/18/18 04:20 MCHC 33 % (32-34) 02/18/18 04:20 RDW 14.7 % (13.2-15.2) 02/18/18 04:20 Plt Count 324 K/mm3 (140-440) 02/18/18 04:20 Lymph % (Auto) 11.3 % (13.4-35.0) L 02/18/18 04:20 [place] % (Auto) 11.7 % (0.0-7.3) H 02/18/18 04:20 Eos % (Auto) 0.7 % (0.0-4.3) 02/18/18 04:20 Baso % (Auto) 0.1 % (0.0-1.8) 02/18/18 04:20 Lymph # 2.0 K/mm3 (1.2-5.4) 02/18/18 04:20 [place] # 2.0 K/mm3 (0.0-0.8) H 02/18/18 04:20 Eos # 0.1 K/mm3 (0.0-0.4) 02/18/18 04:20 Baso # 0.0 K/mm3 (0.0-0.1) 02/18/18 04:20 Seg Neutrophils % 76.2 % (40.0-70.0) H 02/18/18 04:20 Seg Neutrophils # 13.3 K/mm3 (1.8-7.7) H 02/18/18 04:20 PT 14.4 Sec. (12.2-14.9) 02/15/18 16:42 INR 1.06 (0.87-1.13) 02/15/18 16:42 VBG pH 7.381 (7.320-7.420) 02/15/18 16:38 Sodium 141 mmol/L (137-145) 02/18/18 04:20 Potassium 3.8 mmol/L (3.6-5.0) 02/18/18 04:20 Chloride 103.7 mmol/L (98-107) 02/18/18 04:20 Carbon Dioxide 24 mmol/L (22-30) 02/18/18 04:20 Anion Gap 17 mmol/L 02/18/18 04:20 BUN 19 mg/dL (9-20) 02/18/18 04:20 Creatinine 1.4 mg/dL (0.8-1.5) 02/18/18 04:20 Estimated GFR > 60 ml/min 02/18/18 04:20 BUN/Creatinine Ratio 14 % 02/18/18 04:20 Glucose 148 mg/dL (75-100) H 02/18/18 04:20 Lactic Acid 1.00 mmol/L (0.7-2.0) 02/15/18 19:09 Uric Acid 9.4 mg/dL (3.5-7.6) H 02/16/18 10:34 Calcium 8.5 mg/dL (8.4-10.2) 02/18/18 04:20 Total Bilirubin 0.30 mg/dL (0.1-1.2) 02/18/18 04:20 AST 14 units/L (5-40) 02/18/18 04:20 ALT 9 units/L (7-56) 02/18/18 04:20 Alkaline Phosphatase 83 units/L (35-129) 02/18/18 04:20 Total Protein 6.5 g/dL (6.3-8.2) 02/18/18 04:20 Albumin 3.3 g/dL (3.9-5) L 02/18/18 04:20 Albumin/Globulin Ratio 1.0 % 02/18/18 04:20 Urine Color Yellow (Yellow) 02/15/18 20:53 Urine Turbidity Clear (Clear) 02/15/18 20:53 Urine pH 5.0 (5.0-7.0) 02/15/18 20:53 Ur Specific [place] 1.013 (1.003-1.030) 02/15/18 20:53 Urine Protein <15 mg/dl mg/dL (Negative) 02/15/18 20:53 Urine Glucose (UA) Neg mg/dL (Negative) 02/15/18 20:53 Urine Ketones Tr mg/dL (Negative) 02/15/18 20:53 Urine Blood Neg (Negative) 02/15/18 20:53 Urine Nitrite Neg (Negative) 02/15/18 20:53 Urine Bilirubin Neg (Negative) 02/15/18 20:53 Urine Urobilinogen < 2.0 mg/dL (<2.0) 02/15/18 20:53 Ur Leukocyte Esterase Neg (Negative) 02/15/18 20:53 Urine WBC (Auto) 1.0 /HPF (0.0-6.0) 02/15/18 20:53 Urine RBC (Auto) 2.0 /HPF (0.0-6.0) 02/15/18 20:53 Urine Mucus Few /HPF 02/15/18 20:53
[2018-02-19] MEDS: INDOCIN PO SCH ×3 (05:37→22:46)
[2018-02-19] MEDS: NORVASC PO SCH (09:24)
[2018-02-19] MEDS: LOVENOX SUB-Q SCH (09:24)
[2018-02-19] MEDS: COLCRYS PO SCH ×2 (09:24→22:45)
[2018-02-19] MEDS: DELTASONE PO SCH (09:25)
[2018-02-19 10:15] LABS: Alanine Aminotransferase 10 units/L (7-56); BUN/Creatinine Ratio 20; Blood Urea Nitrogen 28 mg/dL (9-20); Calcium 8.9 mg/dL (8.4-10.2); Hemolysis Index 2
[2018-02-19] MEDS: SODIUM CHLORIDE FLUSH SYRINGE 10 ML IV SCH ×2 (10:37→22:46)
[2018-02-19] MEDS: cefTRIAXone 1 GM in NACL 0.9% 20 ML IV SCH (10:38)
[2018-02-19 11:10] LABS: Basophils % (Auto) 0.3 % (0.0-1.8); Eosinophils # (Auto) 0.2 K/mm3 (0.0-0.4); Eosinophils % (Auto) 1.1 % (0.0-4.3); Hematocrit 34.2 % (35.5-45.6); Hemoglobin 10.9 gm/dl (11.8-15.2); Lymphocytes # (Auto) 1.9 K/mm3 (1.2-5.4); Lymphocytes % (Auto) 10.9 % (13.4-35.0); Mean Corpuscular HGB Conc 32 % (32-34); Mean Corpuscular Hemoglobin 28 pg (28-32); Mean Corpuscular Volume 86 fl (84-94); Monocytes # (Auto) 1.2 K/mm3 (0.0-0.8); Monocytes % (Auto) 6.8 % (0.0-7.3); Platelet Count 376 K/mm3 (140-440); Red Blood Count 3.96 M/mm3 (3.65-5.03); Red Cell Distribution Width 14.5 % (13.2-15.2)
[2018-02-20] MEDS: INDOCIN PO SCH ×2 (06:45→13:15)
[2018-02-20] MEDS: cefTRIAXone 1 GM in NACL 0.9% 20 ML IV SCH (10:06)
[2018-02-20] MEDS: DELTASONE PO SCH (10:07)
[2018-02-20] MEDS: COLCRYS PO SCH (10:07)
[2018-02-20] MEDS: LOVENOX SUB-Q SCH (10:07)
[2018-02-20] MEDS: NORVASC PO SCH (10:07)
[2018-02-20] MEDS: SODIUM CHLORIDE FLUSH SYRINGE 10 ML IV SCH (10:09)
[2018-02-20 16:40] VITALS: BP 136/94
== END 2018-02-20 18:50 | disposition home or self-care (01) | DRG 554 ==
LOC: ED 16:23 → 3A 02-16 00:12
PROVIDERS: ADMIT Internal Medicine; ATTEND Internal Medicine
DX: M10.9 Gout, unspecified (principal); R65.10 Systemic inflammatory response syndrome (SIRS) of non-infectious origin without acute organ dysfunction; I10 Essential (primary) hypertension; M19.90 Unspecified osteoarthritis, unspecified site; Z82.49 Family history of ischemic heart disease and other diseases of the circulatory system
CPT/HCPCS: 36415; 71045; 80048; 80053; 81001; 82140; 82805; 84550; 85025; 85610; 87040; 87086; 93005; 93010; 96361; 96374; 96375; J0696; J1170; J1650; J2270; J2405; J3370; J7030; J7040; J7512